=== PATIENT | male | born 1990 | race Two or more races ===

== ENCOUNTER → 2020-04-09 | Outpatient (CLI) | payer OTHER ==
--- NOTE | 2020-04-09 16:18 | Diagnostic Imaging Report ---
X-ray KUB History: Obstructing left calculus Comparison: None. Findings: The study is submitted on 2 images. There is a left pigtail drain likely representing percutaneous nephrostomy with the pigtail overlying the left renal outline. There is an immediately adjacent angiographic catheter that goes beyond the pigtail catheter and follows the expected path of the left ureter with the tip overlying the left pelvis. The external and of this angiographic catheter is not visualized on this image. The shaft is doubled up in the region of the left kidney. No definite calculus is seen. No other significant abnormalities. Impression: 2 catheters on the left side of the abdomen likely representing a left nephrostomy and an angiographic catheter placed as a a left percutaneous nephroureteral access. No renal calculus is seen per se. Signed by: Oscar Montez MD on 04/09/2020 4:15 PM
== END ==
LOC: RAD 15:52
PROVIDERS: ATTEND Urology
DX: N20.0 Calculus of kidney (principal)
CPT/HCPCS: 74018